=== PATIENT | male | born 1985 | race African-American/Black ===

== ENCOUNTER 2016-08-28 17:36 | Emergency (ER) | payer MEDICAID ==
[~2016-08-28] VITALS: Ht 182.9 cm; Wt 91.0 kg
[2016-08-28 18:01] VITALS: BP 174/111
== END 2016-08-28 23:00 | disposition home or self-care (01) ==
LOC: ER 22:55
DX: S90.121A Contusion of right lesser toe(s) without damage to nail, initial encounter (principal); Y93.67 Activity, basketball; Y92.89 Other specified places as the place of occurrence of the external cause; I10 Essential (primary) hypertension
CPT/HCPCS: 73630; 99284

== ENCOUNTER 2017-02-03 10:31 | Emergency (ER) | payer MEDICAID ==
[~2017-02-03] VITALS: Ht 182.9 cm; Wt 91.0 kg
[2017-02-03 11:11] VITALS: BP 187/115
[2017-02-03] MEDS ORDERED: KETOROLAC 30MG/ML VIAL IM ONE (11:15)
== END 2017-02-03 12:15 | disposition home or self-care (01) ==
LOC: ER 10:45
DX: S93.401A Sprain of unspecified ligament of right ankle, initial encounter (principal); I10 Essential (primary) hypertension; W20.8XXA Other cause of strike by thrown, projected or falling object, initial encounter; Y93.61 Activity, american tackle football; Y92.9 Unspecified place or not applicable
CPT/HCPCS: 73590; 73610; 73630; 96372; 99284; J1885

== ENCOUNTER 2017-12-04 19:20 | Emergency (ER) | payer MEDICAID ==
[~2017-12-04] VITALS: Ht 182.9 cm; Wt 93.0 kg
[2017-12-04] MEDS ORDERED: IPRATROPIUM BROMIDE (0.02%) 0.5MG/2.5ML NEB HHN STA (19:59)
[2017-12-04] MEDS ORDERED: ALBUTEROL (0.083%) 2.5MG/3ML NEB HHN STA (19:59)
[2017-12-04] MEDS ORDERED: IBUPROFEN 600MG TABLET PO ONE (20:15)
[2017-12-04] MEDS ORDERED: METOCLOPRAMIDE HCL 5MG TABLET PO ONE (20:15)
[2017-12-04] MEDS ORDERED: KETOROLAC 60MG/2ML VIAL IM ONE (20:15)
[2017-12-04 21:54] VITALS: BP 175/115
[2017-12-04] MEDS ORDERED: ENALAPRIL 5MG TABLET PO SCH (22:00)
== END 2017-12-05 00:15 | disposition left against medical advice (07) ==
LOC: ER 19:20
DX: J06.9 Acute upper respiratory infection, unspecified (principal)
CPT/HCPCS: 71045; 94640; 96372; 99283; J1885; J7611; J8597

== ENCOUNTER 2018-02-25 10:32 | Emergency (ER) | payer MEDICAID ==
[~2018-02-25] VITALS: Ht 182.9 cm; Wt 94.0 kg
[2018-02-25 10:56] VITALS: BP 182/100
== END 2018-02-25 14:12 | disposition home or self-care (01) ==
LOC: ER 10:32
DX: H10.89 Other conjunctivitis (principal); J45.909 Unspecified asthma, uncomplicated; I10 Essential (primary) hypertension
CPT/HCPCS: 99281; 99283

== ENCOUNTER 2019-04-07 03:06 | Emergency (ER) | payer MEDICAID ==
[~2019-04-07] VITALS: Ht 182.9 cm; Wt 92.0 kg
[2019-04-07] MEDS ORDERED: SODIUM CHLORIDE 0.9% 1,000 ML IV ONE (06:35)
[2019-04-07] MEDS ORDERED: ACETAMINOPHEN 325MG TABLET PO ONE (06:45)
[2019-04-07 07:24] LABS: BASOPHILS % 0.5 % (0.0-2.0); EOSINOPHILS % 0.2 % (0.0-5.0); HEMATOCRIT. 41.5 % (42.0-52.0); LYMPHOCYTES % 22.6 % (20.0-50.0); MEAN CORPUSCULAR HEMOGLOBIN 29.4 pg (28.0-32.0); MEAN CORPUSCULAR VOLUME 87.1 fL (80.0-94.0); MEAN PLATELET VOLUME 8.2 fl (7.4-10.4); MONOCYTES % 11.6 % (2.0-8.0); NEUTROPHILS % 65.1 % (40.0-76.0); PLATELET 172 x1000/uL (130-400); RED BLOOD CELL COUNT 4.77 mill/uL (4.7-6.1); RED CELL DISTRIBUTION WIDTH 13.4 % (11.6-14.6)
[2019-04-07 07:33] LABS: CHLORIDE 102 mEq/L (98-107)
[2019-04-07 07:34] LABS: INR 1.1
[2019-04-07] MEDS ORDERED: KETOROLAC 30MG/ML VIAL IV ONE (08:15)
[2019-04-07 09:22] LABS: CLARITY URINE CLEAR (CLEAR); COLOR URINE YELLOW (YELLOW); KETONES URINE 1+ (NEGATIVE); LEUKOCYTE ESTERASE URINE NEGATIVE (NEGATIVE); NITRITE URINE NEGATIVE (NEGATIVE); OCCULT BLOOD URINE TRACE (NEGATIVE); PH URINE 5.5 (4.5-8.0); PROTEIN URINE TRACE (NEGATIVE); SPECIFIC GRAVITY URINE 1.028 (1.005-1.030); UROBILINOGEN URINE 0.2 E.U./dL (0.2-1.0)
[2019-04-07 09:30] VITALS: BP 149/97
== END 2019-04-07 09:50 | disposition home or self-care (01) ==
LOC: ER 03:06 → CANBEDREQ 09:53
DX: B34.9 Viral infection, unspecified (principal); R00.0 Tachycardia, unspecified; I10 Essential (primary) hypertension; J45.909 Unspecified asthma, uncomplicated
CPT/HCPCS: 36415; 71045; 80053; 81003; 83605; 84145; 84484; 85025; 85610; 87040; 87086; 87804; 93005; 96374; 99284; J1885; J7030; Z7610

== ENCOUNTER 2019-10-13 20:35 | Emergency (ER) | payer MEDICAID ==
[~2019-10-13] VITALS: Ht 180.3 cm; Wt 91.0 kg
[2019-10-13] MEDS ORDERED: ONDANSETRON 4MG ODT PO ONE (21:15)
[2019-10-13] MEDS ORDERED: MORPHINE SULFATE 10 MG/ML CPJ IM ONE (21:15)
[2019-10-13] MEDS ORDERED: KETOROLAC 60MG/2ML VIAL IM ONE (21:15)
[2019-10-13] MEDS ORDERED: CYCLOBENZAPRINE 10MG TABLET PO ONE (22:45)
[2019-10-13] MEDS ORDERED: HYDROCODONE/ACETAMINOPHEN 5/325MG TABLET PO ONE (22:45)
[2019-10-13 23:00] VITALS: BP 157/79
== END 2019-10-13 23:09 | disposition home or self-care (01) ==
LOC: ER 20:35
DX: M54.41 Lumbago with sciatica, right side (principal); I10 Essential (primary) hypertension; J45.909 Unspecified asthma, uncomplicated
CPT/HCPCS: 96374; 96375; 99284; J1885; J2270; Q0162

== ENCOUNTER 2019-10-15 22:04 | Emergency (ER) | payer MEDICAID ==
[~2019-10-15] VITALS: Ht 180.3 cm; Wt 90.0 kg
[2019-10-15] MEDS ORDERED: KETOROLAC 30MG/ML VIAL IV STA (22:35)
[2019-10-15] MEDS ORDERED: MORPHINE SULFATE 4 MG/ML CPJ (NOT FOR IM USE) IV STA (22:35)
[2019-10-15] MEDS ORDERED: CLONIDINE 0.1MG TABLET PO ONE (22:45)
[2019-10-15 23:46] LABS: CLARITY URINE CLEAR (CLEAR); COLOR URINE YELLOW (YELLOW); KETONES URINE NEGATIVE (NEGATIVE); LEUKOCYTE ESTERASE URINE 1+ (NEGATIVE); NITRITE URINE NEGATIVE (NEGATIVE); OCCULT BLOOD URINE NEGATIVE (NEGATIVE); PH URINE 5.5 (4.5-8.0); PROTEIN URINE NEGATIVE (NEGATIVE); SPECIFIC GRAVITY URINE 1.028 (1.005-1.030)
[2019-10-16 01:34] VITALS: BP 157/87
== END 2019-10-16 01:54 | disposition home or self-care (01) ==
LOC: ER 22:04
DX: M54.41 Lumbago with sciatica, right side (principal); J45.909 Unspecified asthma, uncomplicated
CPT/HCPCS: 72100; 81003; 96374; 96375; 99284; J1885; J2270

== ENCOUNTER 2019-10-24 22:13 | Emergency (ER) | payer MEDICAID ==
[~2019-10-24] VITALS: Ht 180.3 cm; Wt 89.0 kg
[2019-10-24] MEDS ORDERED: KETOROLAC 60MG/2ML VIAL IM ONE (23:15)
[2019-10-25 00:36] VITALS: BP 142/82
== END 2019-10-25 00:41 | disposition home or self-care (01) ==
LOC: ER 22:13
DX: M54.5 Low back pain (principal); I10 Essential (primary) hypertension; J45.909 Unspecified asthma, uncomplicated
CPT/HCPCS: 96372; 99283; J1885

== ENCOUNTER 2023-05-04 14:31 | Emergency (ER) | payer MEDICAID ==
[~2023-05-04] VITALS: Ht 182.9 cm; Wt 100.0 kg
[2023-05-04 14:42] VITALS: O2SAT 100
[2023-05-04 15:18] LABS: BASOPHILS % 0.6 % (0.0-2.0); HEMATOCRIT. 40.9 % (42.0-52.0); HEMOGLOBIN. 13.5 g/dL (14.0-18.0); LYMPHOCYTES % 34.6 % (20.0-50.0); MEAN CORPUSCULAR HEMOGLOBIN 29.8 pg (28.0-32.0); MEAN CORPUSCULAR HGB CONC 33.1 g/dL (31.0-37.0); MEAN CORPUSCULAR VOLUME 90.2 fL (80.0-94.0); MEAN PLATELET VOLUME 7.7 fl (7.4-10.4); MONOCYTES % 7.9 % (2.0-8.0); NEUTROPHILS % 51.9 % (40.0-76.0); PLATELET 253 x1000/uL (130-400); RED BLOOD CELL COUNT 4.54 mill/uL (4.7-6.1); RED CELL DISTRIBUTION WIDTH 13.6 % (11.6-14.6); WHITE BLOOD COUNT 4.4 x1000/uL (4.5-11.0)
[2023-05-04 15:29] LABS: ALANINE AMINOTRANSFERASE 25 IU/L (10-49); ALBUMIN 4.5 g/dL (3.2-4.8); ASPARTATE AMINOTRANSFERASE 29 IU/L (<34); BILIRUBIN TOTAL 0.8 mg/dL (0.1-1.0); CALCIUM 9.6 mg/dL (8.7-10.4); CARBON DIOXIDE 27 mEq/L (21-32); CHLORIDE 104 mEq/L (98-107); CREATININE 1.2 mg/dL (0.6-1.3); GLUCOSE 88 mg/dL (70-105); POTASSIUM 4.2 mEq/L (3.5-5.1); PROTEIN TOTAL 7.4 g/dL (6.0-8.3); SODIUM 136 mEq/L (136-145); TROPONIN I HIGH SENSITIVITY 15 ng/L (3.0-53); UREA NITROGEN BLOOD 20 mg/dL (9-23)
[2023-05-04] MEDS ORDERED: AMLODIPINE 5MG TABLET PO ONE (15:30)
[2023-05-04 16:36] LABS: CLARITY URINE CLEAR (CLEAR); COLOR URINE YELLOW (YELLOW); GLUCOSE URINE NEGATIVE (NEGATIVE); KETONES URINE NEGATIVE (NEGATIVE); LEUKOCYTE ESTERASE URINE NEGATIVE (NEGATIVE); NITRITE URINE NEGATIVE (NEGATIVE); OCCULT BLOOD URINE TRACE (NEGATIVE); PH URINE 5.5 (4.5-8.0); PROTEIN URINE NEGATIVE (NEGATIVE); SPECIFIC GRAVITY URINE 1.019 (1.005-1.030); UROBILINOGEN URINE 0.2 E.U./dL (0.2-1.0)
[2023-05-04 16:51] LABS: BACTERIA URINE TRACE; RBC URINE 0-2 /hpf (0-2); SQUAMOUS EPITHELIAL CELL URINE FEW /lpf (RARE/1+); WBC URINE 0-2 /hpf (0-2)
[2023-05-04 18:06] LABS: TROPONIN I HIGH SENSITIVITY 16 ng/L (3.0-53)
[2023-05-04] MEDS ORDERED: AMLO5TAB88 MT (18:30)
[2023-05-04 18:54] VITALS: BP 188/97; PULSE 84; RESP 16; TEMP 98.1
== END 2023-05-04 19:10 | disposition home or self-care (01) ==
LOC: ER 14:31
DX: I10 Essential (primary) hypertension (principal); J45.909 Unspecified asthma, uncomplicated
CPT/HCPCS: 36415; 71045; 80053; 81003; 83880; 84484; 85025; 93005; 99291